=== PATIENT | female | born 1995 | race Caucasian/White ===

== ENCOUNTER 2019-04-10 22:38 | Observation (INO) | payer MEDICAID, OTHER ==
[~2019-04-10] VITALS: Ht 167.6 cm; Wt 65.8 kg
[2019-04-10] MEDS ORDERED: PREN-153 OR (22:59)
[2019-04-10] MEDS ORDERED: LACTATED RINGER'S 1,000 ML IV SCH (23:02)
[2019-04-10] MEDS ORDERED: LACTATED RINGER'S 1,000 ML IV ONE (23:02)
[2019-04-10] MEDS ORDERED: BETAMETHASONE ACET (6MG/ML) 5ML VIAL ONE (23:11)
[2019-04-10] MEDS: TERBUTALINE SULFATE 1 MG/ML 1ML VIAL SC SCH ×2 (23:13→23:36)
[2019-04-10] MEDS ORDERED: NIFEdipine 10 MG CAP PO ONE (23:30)
[2019-04-11] MEDS ORDERED: BETAMETHASONE ACET (6MG/ML) 5ML VIAL IM SCH (10:00)
== END 2019-04-11 00:35 | disposition home or self-care (01) | DRG 563 ==
LOC: LDRP 22:38
PROVIDERS: ADMIT Obstetrics & Gynecology; ATTEND Obstetrics & Gynecology
DX: O60.03 Preterm labor without delivery, third trimester (principal); O62.9 Abnormality of forces of labor, unspecified; Z3A.31 31 weeks gestation of pregnancy
CPT/HCPCS: 59025; 81002; 96372; G0378; J0702; J3105; 96361; 96366

== ENCOUNTER 2019-04-11 22:30 | Observation (INO) | payer MEDICAID ==
[~2019-04-11] VITALS: Ht 167.6 cm; Wt 65.8 kg
[~2019-04-11 22:30] MED LIST: PREN-153 OR
[2019-04-11] MEDS ORDERED: BETAMETHASONE ACET (6MG/ML) 5ML VIAL IM ONE (23:00)
== END 2019-04-11 23:00 | disposition home or self-care (01) | DRG 566 ==
LOC: LDRP 22:30
PROVIDERS: ADMIT Obstetrics & Gynecology; ATTEND Obstetrics & Gynecology
DX: O62.9 Abnormality of forces of labor, unspecified (principal); Z3A.31 31 weeks gestation of pregnancy
CPT/HCPCS: 59025; 81002; G0378; 96372

== ENCOUNTER 2019-04-14 10:55 | Observation (INO) | payer MEDICAID | END 2019-04-14 12:00 | disposition home or self-care (01) | DRG 566 | LOC: LDRP 10:55 | PROVIDERS: ADMIT Obstetrics & Gynecology; ATTEND Obstetrics & Gynecology | DX: O62.9 Abnormality of forces of labor, unspecified (principal); O26.893 Other specified pregnancy related conditions, third trimester; M54.9 Dorsalgia, unspecified; Z3A.31 31 weeks gestation of pregnancy | CPT/HCPCS: 59025; 81002; G0378 ==

== ENCOUNTER 2019-04-16 10:03 | Observation (INO) | payer MEDICAID ==
[~2019-04-16] VITALS: Ht 149.9 cm; Wt 95.3 kg
[2019-04-16] MEDS ORDERED: NIF10C GT (11:12)
== END 2019-04-16 10:45 | disposition home or self-care (01) | DRG 563 ==
LOC: LDRP 10:03
PROVIDERS: ADMIT Specialist; ATTEND Specialist
DX: O60.03 Preterm labor without delivery, third trimester (principal); Z3A.32 32 weeks gestation of pregnancy
CPT/HCPCS: 59025; 81002; G0378

== ENCOUNTER 2019-04-21 10:05 | Observation (INO) | payer MEDICAID ==
[~2019-04-21 10:05] MED LIST changes: +NIF10C GT
== END 2019-04-21 10:45 | disposition home or self-care (01) | DRG 563 ==
LOC: LDRP 10:05
PROVIDERS: ADMIT Specialist; ATTEND Specialist
DX: O60.03 Preterm labor without delivery, third trimester (principal); Z3A.33 33 weeks gestation of pregnancy
CPT/HCPCS: 59025; 81002; G0378

== ENCOUNTER 2019-04-28 10:05 | Observation (INO) | payer MEDICAID | END 2019-04-28 11:00 | disposition home or self-care (01) | DRG 563 | LOC: LDRP 10:05 | PROVIDERS: ADMIT Obstetrics & Gynecology; ATTEND Obstetrics & Gynecology | DX: O60.03 Preterm labor without delivery, third trimester (principal); Z3A.34 34 weeks gestation of pregnancy | CPT/HCPCS: 59025; 81002; G0378 ==

== ENCOUNTER 2019-05-06 10:23 | Observation (INO) | payer MEDICAID | END 2019-05-06 11:42 | disposition home or self-care (01) | DRG 563 | LOC: LDRP 10:23 | PROVIDERS: ADMIT Obstetrics & Gynecology; ATTEND Obstetrics & Gynecology | DX: O60.03 Preterm labor without delivery, third trimester (principal); Z3A.35 35 weeks gestation of pregnancy | CPT/HCPCS: 59025; 81002; G0378 ==

== ENCOUNTER 2019-05-15 10:52 | Observation (INO) | payer MEDICAID ==
[~2019-05-15 10:52] MED LIST changes: -NIF10C GT
== END 2019-05-15 12:20 | disposition home or self-care (01) | DRG 563 ==
LOC: LDRP 10:52
PROVIDERS: ADMIT Specialist; ATTEND Specialist
DX: O60.03 Preterm labor without delivery, third trimester (principal); Z3A.36 36 weeks gestation of pregnancy
CPT/HCPCS: 59025; 81002; G0378

== ENCOUNTER 2019-05-30 03:34 | Inpatient (IN) | payer MEDICAID ==
[~2019-05-30] VITALS: Ht 30.5 cm; Wt 0.5 kg
[2019-05-30] MEDS ORDERED: LACT. RINGERS/OXYTOCIN 20UNITS 1,000 ML IV SCH (08:35)
[2019-05-30] MEDS ORDERED: LIDOCAINE 2%HCL (LOCAL ANESTH.) INJ 20ML MDV ID ONE (08:45)
[2019-05-30] MEDS ORDERED: PHISODERM TOP SOLN 240ML BTL TOP PRN (08:45)
[2019-05-30 09:16] LABS: Urine Bacteria FEW /hpf (None Seen); Urine Blood 1+ /uL (Negative); Urine Mucus FEW (None Seen); Urine Specific Gravity 1.016 (1.001-1.035); Urine WBC 7 /hpf (0 - 5)
[2019-05-30 09:37] LABS: Basophils # (auto) 0 10 ^3/uL (0-0.2); Basophils % (auto) 0.4 % (0.0-2.0); Eosinophils # (auto) 0.1 10 ^3/uL (0-0.8); Eosinophils % (auto) 0.9 % (0.0-7.0); Hematocrit 37.2 % (36.0-46.0); Hemoglobin 12.6 g/dL (12.2-16.2); Lymphocytes # (auto) 2.3 10 ^3/uL (0.4-5.4); Lymphocytes % (auto) 21.6 % (10.0-50.0); Mean Corpuscular Hemoglobin 31.8 pg (28.0-32.0); Mean Corpuscular Volume 93.8 fL (80.0-100.0); Monocytes # (auto) 0.7 10 ^3/uL (0-1.3); Monocytes % (auto) 6.6 % (0.0-12.0); Neutrophils # (auto) 7.4 10 ^3/uL (1.6-8.6); Neutrophils % (auto) 70.5 % (37.0-80.0); Nucleated Red Blood Cells % 0.1 %; Platelet Count (auto) 150 10^3/uL (140-450); Red Blood Cells 3.97 10^6/uL (4.0-5.20); Red Cell Distribution Width 13.3 % (11.8-14.3); White Blood Cell 10.5 10^3/uL (4.4-10.8)
[2019-05-30] MEDS: LACTATED RINGER'S 1,000 ML IV SCH (09:40)
[2019-05-30 09:52] LABS: INR 0.95 (0.9-1.15); Partial Thromboplastin Time 24.8 sec (23.64-32.05)
[2019-05-30 09:56] LABS: Albumin 2.9 g/dL (3.4-5.0); Calcium 9.3 mg/dL (8.5-10.1); Potassium 4.1 mmol/L (3.5-5.1)
[2019-05-30 10:03] LABS: BUN/Creatinine Ratio 16.7; Bilirubin, Total 0.3 mg/dL (0.2-1.0); Total Protein 6.7 g/dL (6.4-8.2); Uric Acid 6.3 mg/dL (2.6-6.0)
[2019-05-30] MEDS ORDERED: hydrALAZINE HCL 20 MG/ML VL IV ONE (10:15)
[2019-05-30] MEDS: miSOPROStol 50 MCG per PRE-CUT 1/2 TAB PO PRN ×3 (10:24→20:19)
[2019-05-30] MEDS ORDERED: TERBUTALINE SULFATE 1 MG/ML 1ML VIAL SC ONE (16:30)
[2019-05-31] MEDS: fentaNYL 200mCg/100ml W ROPIVA 100 ML EPI SCH ×2 (00:38→09:23)
[2019-05-31] MEDS ORDERED: SODIUM CHLORIDE 0.9% 500 ML IV PRN (00:49)
[2019-05-31] MEDS ORDERED: fentaNYL 200mCg/100ml W ROPIVA 100 ML EPI SCH (01:00)
[2019-05-31] MEDS ORDERED: ePHEDrine SULFATE 50 MG/ML AMP IV ONE ×2 (01:00)
[2019-05-31] MEDS ORDERED: NALOXONE HCL 0.4 MG/ML VIAL IV ONE (01:00)
[2019-05-31] MEDS: LACTATED RINGER'S 1,000 ML IV SCH ×2 (01:28→01:29)
[2019-05-31 12:08] LABS: RPR Non Reactive (Non Reactive)
[2019-05-31 14:39] VITALS: BP 112/62
[2019-05-31] MEDS: WITCH HAZEL-GLYCERIN PAD TOP PRN (14:42)
[2019-05-31] MEDS: DERMOPLAST 60ML BOTTLE TOP PRN (14:42)
[2019-05-31] MEDS: IBUPROFEN 600 MG TAB PO PRN ×2 (14:43→21:12)
[2019-05-31 19:00] VITALS: BP 129/75
[2019-05-31 23:00] VITALS: BP 122/75
[2019-06-01 02:59] VITALS: BP 114/70
[2019-06-01 07:02] VITALS: BP 120/74
[2019-06-01] MEDS: IBUPROFEN 600 MG TAB PO PRN (07:41)
[2019-06-01 12:11] VITALS: BP 137/85
[2019-06-01] MEDS: DERMOPLAST 60ML BOTTLE TOP PRN (12:38)
[2019-06-01] MEDS: WITCH HAZEL-GLYCERIN PAD TOP PRN (12:38)
== END 2019-06-01 12:55 | disposition home or self-care (01) | DRG 560 ==
LOC: LDRP 03:34 → OBSVTOIN 08:25 → LDRP 23:46
PROVIDERS: ADMIT Specialist; ATTEND Specialist
PROC: 10E0XZZ Delivery of Products of Conception, External Approach (ICD-10-PCS; principal; 2019-05-30)
PROC: 0HQ9XZZ Repair Perineum Skin, External Approach (ICD-10-PCS; 2019-05-30)
PROC: 3E0R3BZ Introduction of Anesthetic Agent into Spinal Canal, Percutaneous Approach (ICD-10-PCS; 2019-05-30)
PROC: 00HU33Z Insertion of Infusion Device into Spinal Canal, Percutaneous Approach (ICD-10-PCS; 2019-05-30)
DX: O13.4 Gestational [pregnancy-induced] hypertension without significant proteinuria, complicating childbirth (principal); O70.0 First degree perineal laceration during delivery; Z37.0 Single live birth; Z3A.38 38 weeks gestation of pregnancy; Z88.6 Allergy status to analgesic agent; Z88.5 Allergy status to narcotic agent
CPT/HCPCS: 36415; 51702; 59025; 59409; 62282; 76805; 80053; 81001; 81002; 84112; 84550; 85025; 85610; 85730; 86592; 86850; 86900; 86901; 94762; 96365; 96366; G0378; J2590

== ENCOUNTER → 2023-04-16 | Outpatient (CLI) | payer MEDICAID ==
[~2023-04-16] MED LIST changes: -PREN-153 OR; +PREN1TAB71 OR
== END | disposition home or self-care (01) ==
LOC: LAB 09:11
PROVIDERS: ATTEND Obstetrics & Gynecology
DX: N91.2 Amenorrhea, unspecified (principal)
CPT/HCPCS: 36415; 84702

== ENCOUNTER 2024-01-21 12:15 | Observation (INO) | payer MEDICAID ==
--- NOTE | 2024-01-21 13:35 | DVH ---
BIOPHYSICAL PROFILE HISTORY: Positive AFP TECHNIQUE: Multiple transabdominal real-time grayscale sonographic images through the gravid uterus of the fetus with duplex Doppler color flow and M-mode spectral analysis FINDINGS: BIOPHYSICAL PROFILE: breathing score: 2 movement score: 2 tone score: 2 Quantitative OSMAN score: 2 (OSMAN: 10.7 Cm.) Total score: 8 The cervix is not definitely visualized Single live fetus in vertex presentation. heart rate 134 beats per minute. Anterior placenta without previa or abruption IMPRESSION: Biophysical profile score: 8
--- NOTE | 2024-01-21 19:48 | DVHDS2 ---
Physician Discharge Progress N Final Diagnosis: testing for +AFP Operations or Procedures: Operations or Procedures 29yo IUP@34wks was sent down from [facility] OB office for NST/BPP because she could not make it to her appt with Dr. Larios today for +AFP (NST/BPP done twice weekly). +FM, denies UCs/VB/LOF VSS UA wnl NST reactive BPP wnl FKC/PTL precautions reviewed Condition on Discharge: Stable Disposition: Home Discharge Instructions: Diet: Regular Activity: No Restrictions, As Tolerated Medications: PNV Follow Up Care: Specialist: f/u with [facility] OB appts and Dr. Larios's appts as scheduled Discharge Statement: "Patient was advised to return to the ER or call 911 if any headaches, dizziness, shortness of breath, chest pain, abdominal pain, bleeding, fevers, or worsening of medical condition. Patient was counseled about treatment plan, medications, possible side effects, patientverbalized understanding. All questions were answered to the best of my ability. This discharge took greater then 30 minutes in planning, reviewing documentation, counseling the patient, and discussing with other team members." ANDERSON KNIGHT CNM Jan 21, 2024 19:48
== END 2024-01-21 14:00 | disposition home or self-care (01) ==
LOC: LDRP 12:15
PROVIDERS: ADMIT Obstetrics & Gynecology; ATTEND Obstetrics & Gynecology
DX: Z36.1 Encounter for antenatal screening for raised alphafetoprotein level (principal); Z3A.34 34 weeks gestation of pregnancy; Z88.5 Allergy status to narcotic agent
CPT/HCPCS: 76818; G0378; 59025; 81002; 94760

== ENCOUNTER 2024-02-25 23:22 | Observation (INO) | payer MEDICAID ==
[~2024-02-25] VITALS: Ht 167.6 cm; Wt 73.9 kg
[2024-02-26 00:17] LABS: Fern Testing Negative
--- NOTE | 2024-02-26 01:41 | DVHDS2 ---
Physician Discharge Progress N Final Diagnosis: intact amniotic membranes Paul jimenez contractions Operations or Procedures: Operations or Procedures S: 29yo IUP@39+wks presents to OB triage with c/o leaking fluid, unsure if her water broke and irregular contractions. Denies VB/RODRIGUEZ/vision changes/RUQ pain. Endorses +FM. PCN at [facility] OB office, uncomplicated except for +AFP where she gets biweekly NST/BPP at Dr. Larios's office. Pt was unable to make it to her appt at Dr. Larios's today. O: VSS UA wnl NST reactive BPP wnl SSE by RN: negative pooling and nitrazine SVE by RN: /-, intact and unchanged prior to D/C Laboratory Tests Test 02/25/24 23:45 Range/Units Amniotic Fluid Ferning Test Negative A: 29yo IUP@39+wks Intact amniotic membrane Paul jimenez contractions P: D/C home Recommended miles circuit and eat/rest/sleep FKC/Labor/PreE precautions reviewed Other Interventions Other Interventions [place] [id number] Ph: [phone] DIAGNOSTIC IMAGING Diagnostic Imaging Report : [id number] Signed PATIENT: ROGER RESTREPO ACCT: [id number] UNIT: [id number] : 1995 LOC: [facility] ROOM / BED: TRIAGE1 / A AGE / SEX: 29 / F ADM STATUS: ADM IN SERVICE 004 ORDERING PHYSICIAN: ANDERSON KNIGHT CNM PROCEDURE(s): BPP - BIOPHYSICAL PROFILE REASON: positive AFP ORDER NUMBER(s): [id number], ACCESSION NUMBER(s): [id number] BIOPHYSICAL PROFILE HISTORY: positive AFP Comparison Study: None available at time of dictation. TECHNIQUE: Multiple real-time grayscale sonographic images through the gravid uterus of the fetus with duplex Doppler color flow and M-mode spectral analysis FINDINGS: BIOPHYSICAL PROFILE: breathing score: 2 movement score: 2 tone score: 2 Quantitative OSMAN score: 2 (OSMAN: 7.4 Cm.) Total score: 8/8 position is vertex. Placenta is anterior. No evidence of previa or abruption. Review Nurse good notes good movement. heart rate of 142 beats per minute. IMPRESSION: Biophysical profile score: 8/8 ATED BY: NAMRATA DYKES DO DICTATED DATE/TIME: 02/26/24142 SIGNED BY: NAMRATA DYKES DO SIGNED DATE/TIME: 02/26/24142 CC: Condition on Discharge: Stable Disposition: Home Discharge Instructions: Diet: Regular Activity: No Restrictions, As Tolerated Medications: see med list Follow Up Care: Specialist: f/u in 1wk Discharge Statement: "Patient was advised to return to the ER or call 911 if any headaches, dizziness, shortness of breath, chest pain, abdominal pain, bleeding, fevers, or worsening of medical condition. Patient was counseled about treatment plan, medications, possible side effects, patientverbalized understanding. All questions were answered to the best of my ability. This discharge took greater then 30 minutes in planning, reviewing documentation, counseling the patient, and discussing with other team members." ANDERSON KNIGHT [facility] Feb 26, 2024 01:41
--- NOTE | 2024-02-26 01:45 | DVH ---
BIOPHYSICAL PROFILE HISTORY: positive AFP Comparison Study: None available at time of dictation. TECHNIQUE: Multiple real-time grayscale sonographic images through the gravid uterus of the fetus wi th duplex Doppler color flow and M-mode spectral analysis FINDINGS: BIOPHYSICAL PROFILE: breathing score: 2 movement score: 2 tone score: 2 Quantitative OSMAN score: 2 (OSMAN: 7.4 Cm.) Total score: 8/8 position is vertex. Placenta is anterior. No evidence of previa or abruption. Shading Painter good notes good movement. heart rate of 142 beats per minute. IMPRESSION: Biophysical profile score: 8/8
== END 2024-02-26 02:26 | disposition home or self-care (01) ==
LOC: LDRP 23:22
PROVIDERS: ADMIT Obstetrics & Gynecology; ATTEND Obstetrics & Gynecology
DX: O41.93X0 Disorder of amniotic fluid and membranes, unspecified, third trimester, not applicable or unspecified (principal); O62.9 Abnormality of forces of labor, unspecified; Z98.890 Other specified postprocedural states; Z79.899 Other long term (current) drug therapy; Z88.5 Allergy status to narcotic agent; Z3A.39 39 weeks gestation of pregnancy
CPT/HCPCS: 59025; 76818; 81002; G0378; Q0114

== ENCOUNTER 2024-02-28 09:46 | Observation (INO) | payer MEDICAID ==
[~2024-02-28] VITALS: Ht 167.6 cm; Wt 73.9 kg
--- NOTE | 2024-02-28 15:13 | DVHDS2 ---
Physician Discharge Progress N Final Diagnosis: Term IUP, 39+ wk NOT in labor AFP+ Operations or Procedures: Operations or Procedures NST/BPP/OSMAN All WNL Condition on Discharge: Stable Disposition: Home Discharge Instructions: Diet: Regular Activity: Light activity Follow Up/Referral: as scheduled Medications: N/A Follow Up Care: Discharge Statement: "Patient was advised to return to the ER or call 911 if any headaches, dizziness, shortness of breath, chest pain, abdominal pain, bleeding, fevers, or worsening of medical condition. Patient was counseled about treatment plan, medications, possible side effects, patientverbalized understanding. All questions were answered to the best of my ability. This discharge took greater then 30 minutes in planning, reviewing documentation, counseling the patient, and discussing with other team members." JASON PA DO Feb 28, 2024 15:13
== END 2024-02-28 12:14 | disposition home or self-care (01) ==
LOC: LDRP 09:46
PROVIDERS: ADMIT Obstetrics & Gynecology; ATTEND Obstetrics & Gynecology
DX: O62.9 Abnormality of forces of labor, unspecified (principal); Z3A.39 39 weeks gestation of pregnancy; Z88.5 Allergy status to narcotic agent; Z79.899 Other long term (current) drug therapy
CPT/HCPCS: 59025; 81002; 94760; G0378

== ENCOUNTER 2024-02-29 02:02 | Inpatient (IN) | payer MEDICAID ==
[~2024-02-29] VITALS: Ht 167.6 cm; Wt 73.9 kg
[2024-02-29] MEDS ORDERED: NALBUPHINE HCL 10 MG/1ml INJECTION IV PRN (02:45)
[2024-02-29] MEDS ORDERED: LIDOCAINE 2%HCL (LOCAL ANESTH.) INJ 20ML MDV IJ PRN (02:45)
[2024-02-29] MEDS: LIDOCAINE HCL 2 %PF INJ 10ML AMP IJ ONE (03:00)
[2024-02-29] MEDS ORDERED: TERBUTALINE SULFATE 1 MG/ML 1ML VIAL SC PRN (03:00)
[2024-02-29] MEDS ORDERED: LACT. RINGERS/OXYTOCIN 20UNITS 1,000 ML IV SCH (03:00)
[2024-02-29] MEDS ORDERED: ePHEDrine SULFATE 50 MG/ML AMP IV ONE (03:00)
[2024-02-29] MEDS ORDERED: NALOXONE HCL 0.4 MG/ML VIAL IV ONE (03:00)
[2024-02-29 03:10] LABS: Urine Bacteria None Seen /hpf (None Seen)
[2024-02-29] MEDS: PHISODERM TOP SOLN 240ML BTL TOP PRN (03:15)
[2024-02-29] MEDS: DERMOPLAST 60ML BOTTLE TOP PRN (03:15)
[2024-02-29] MEDS: WITCH HAZEL-GLYCERIN PAD TOP PRN (03:15)
[2024-02-29] MEDS: LACTATED RINGER'S 1,000 ML IV SCH (03:16)
[2024-02-29 03:24] LABS: Urine Blood Negative /uL (Negative); Urine Clarity Clear (Clear); Urine Color Light-Yellow (Yellow); Urine Mucus FEW (None Seen); Urine Protein, UAD Negative (Negative); Urine Specific Gravity 1.021 (1.001-1.035); Urine Urobilinogen Normal (Negative); Urine WBC 2 /hpf (0 - 5); Urine pH 6.5 (5.0-9.0)
[2024-02-29 03:27] LABS: Basophils # (auto) 0 10 ^3/uL (0-0.2); Basophils % (auto) 0.2 % (0.0-2.0); Eosinophils # (auto) 0.2 10 ^3/uL (0-0.8); Eosinophils % (auto) 1.4 % (0.0-7.0); Hematocrit 35.8 % (36.0-46.0); Hemoglobin 12.2 g/dL (12.2-16.2); Lymphocytes # (auto) 1.8 10 ^3/uL (0.4-5.4); Lymphocytes % (auto) 16.1 % (10.0-50.0); Mean Corpuscular Hemoglobin 31.6 pg (28.0-32.0); Mean Corpuscular Hgb Conc. 34.2 g/dL (32.0-36.0); Mean Corpuscular Volume 92.4 fL (80.0-100.0); Monocytes # (auto) 0.9 10 ^3/uL (0-1.3); Monocytes % (auto) 8.1 % (0.0-12.0); Neutrophils # (auto) 8.4 10 ^3/uL (1.6-8.6); Neutrophils % (auto) 74.2 % (37.0-80.0); Platelet Count (auto) 182 10^3/uL (140-450); Red Blood Cells 3.88 10^6/uL (4.0-5.20); Red Cell Distribution Width 13.5 % (11.8-14.3); White Blood Cell 11.3 10^3/uL (4.4-10.8)
[2024-02-29] MEDS ORDERED: LACT. RINGERS/OXYTOCIN 20UNITS 500 ML IV ONE (03:30)
[2024-02-29 03:36] LABS: Amphetamine Screen, Urine Neg (NEGATIVE); Barbiturate Scree,Urine Neg (NEGATIVE); Benzodiazephine Screen, Urine Neg (NEGATIVE); Cannabinoid Screen, Urine Neg (NEGATIVE); Cocaine Screen, Urine Neg (NEGATIVE); Opiate Scree,Urine Neg (NEGATIVE); Phencyclidine Screen, Urine Neg (NEGATIVE)
[2024-02-29 03:38] LABS: Alanine Aminotransferase 15 U/L (7-40); Albumin 3.8 g/dL (3.2-4.8); Anion Gap 10 (5-15); BUN/Creatinine Ratio 16.9 (10.0-20.0); Bilirubin, Total 0.3 mg/dL (0.2-1.0); Blood Urea Nitrogen 10 mg/dL (9-23); Calcium 9.8 mg/dL (8.7-10.4); Glucose 100 mg/dL (74-106); Potassium 4.1 mmol/L (3.5-5.1); Sodium 138 mmol/L (136-145); Total Protein 6.3 g/dL (5.7-8.2)
[2024-02-29 03:39] LABS: Alkaline Phosphatase 117 U/L (46-116); Aspartate Aminotransferase 12 U/L (13-40); Carbon Dioxide 20 mmol/L (20-31); Chloride 108 mmol/L (98-107)
[2024-02-29 03:44] LABS: INR 0.92 (0.9-1.15); Partial Thromboplastin Time 23.9 SEC (24.5-34.5); Prothrombin Time 9.8 sec (9.3-11.8)
[2024-02-29] MEDS: LACTATED RINGER'S 1,000 ML IV ONE (04:28)
[2024-02-29] MEDS: ROPIVACAINE HCL 200 ML ONE (04:31)
[2024-02-29] MEDS: CALCIUM CARB 500 MG CHEW TAB PO PRN (06:00)
--- NOTE | 2024-02-29 06:32 | DVHHP2 ---
OB CC & HPI Date Date of Admission: Feb 29, 2024 Patient Identification: : 2 Para: 1 EGA: 39.4 Chief Complaints: Reason for admission: active labor History of Present Complaints 29y IUP 39.4 wk admitted in active labor. GBS neg Good care , uncomplicated. Denies PROM Past Medical History Cardiac: No pertinent Hx Pulmonary: No pertinent Hx Central Nervous System: No pertinent Hx GI: No pertinent Hx Hemotology/Oncology: No pertinent Hx Hepatobiliary: No pertinent Hx Psychiatric: No pertinent Hx Musculoskeletal: No pertinent Hx Rheumotologic: No pertinent Hx Infectious Disease: No peritnent Hx ENT: No pertinent Hx Renal/: No pertinent Hx Endocrine: No pertinent Hx Dermatology: No pertinent Hx Past Surgical History: No pertinent Hx OB History OB History Care: Good Care Ultrasounds: Normal mid trimester US Obstetrical Complications: None Medical Complications: None Allergies: Coded Allergies: Codeine (Verified Allergy, Mild, itching, 04/28/19) Morphine (Verified Allergy, Mild, itching, 04/28/19) Home Meds Reported Medications Vit W/ Ferrous Fumara (PNV PLUS MULTIVI) Plus Tab, 1 OR, TAB 04/10/19 Current Medications Current Medications Medications (Trade) Dose Ordered Sig/Brent Route PRN Reason Start Time Stop Time Status Last Admin Lactated Ringer's 1,000 ml @ 125 mls/hr Q8H IV 02/29/24 02:45 02/29/24 03:16 Nalbuphine HCl (Nubain) 10 mg Q4HP PRN IV MODERATE PAIN (4-6 PAIN SCALE) 02/29/24 02:45 Eddie Moncada (Josh) 1 pad PRN PRN TOP PERINEAL AREA DISCOMFORT 02/29/24 02:45 02/29/24 03:15 Sodium Lauryl Sulfate (Phisoderm) 240 ml PRN PRN TOP PERINEAL AREA DISCOMFORT 02/29/24 02:45 02/29/24 03:15 Benzocaine (Dermoplast) 1 applic PRN PRN TOP PERINEAL AREA DISCOMFORT 02/29/24 02:45 02/29/24 03:15 Lidocaine HCl (Xylocaine) 40 ml ONCE PRN IJ PERINEAL AREA DISCOMFORT 02/29/24 02:45 Oxytocin 1,000 ml @ 6 ml/hr Q24H IV 02/29/24 03:00 Terbutaline Sulfate (Brethine Inj) 0.25 mg ONCE PRN SC Uterine tachysystole 02/29/24 03:00 Calcium Carbonate (Tums) 500 mg QIDPRN PRN PO FOR STOMACH DISTRESS 02/29/24 05:45 02/29/24 06:00 Family & Social History Family/Social History Blood Type: B+ GBS Status: Negative Review of Systems Constitutional: No symptom reported Ears, Nose, & Throat: No symptom reported Eyes: No symptom reported Pulmonary/Respiratory: No symptom reported Cardiovascular: No symptom reported Gastrointestinal: No symptom reported Genitourinary: No symptom reported Musculoskeletal: No symptom reported Skin: No symptom reported Psychiatric: No symptom reported Endocrine: No symptom reported Hemotologic/Lymphatic: No symptom reported OB Admission Exam Physical Exam HEENT: NCAT Heart: Rhythm Normal Lungs: Clear Abdomen: Gravid Extremities: Normal Reflexes: Normal Cervical Dilatation: 6cm Effacement: Other (90) Station: -1 Membranes: Ruptured (AROM at 0620 am) Amniotic Fluid: Clear Accelerations: Accelerations Present Decelerations: No Decelerations Short Term Variability: Present Audio Experience Expert Variability: Average (6-25) Contractions on Admission: < 5 Minutes Apart Intensity: Moderate OB Plan Plan Admitting Diagnosis: IUP 39.4 wk active labor, 6cm dilated GBS neg Plan: Expectant Management Other Plan: Admit for labor and anticipated Pitocin augmentation as needed Pain control, epidural discussed JASON PA DO Feb 29, 2024 06:32
[2024-02-29] MEDS ORDERED: ONDANSETRON HCL 4 MG/2 ML VIAL IV PRN (07:15)
[2024-02-29] MEDS: LACT. RINGERS/OXYTOCIN 20UNITS 500 ML IV ONE (08:18)
--- NOTE | 2024-02-29 08:24 | LDN2 ---
Labor and Delivery Note Date 02/29/24 Age 29 2 Para 2 EGA Term Diagnosis Term in labor, s/p Vaginal Delivery: VTX Vacuum Assisted: No Placenta: Spontaneous Sex: Female Weight Pending Apgars 8/9 Amniotic Fluid: Clear Anesthesia Epidural Episiotomy: No Repaired with 1st deg perineal lac repaired w/ 3-0 Chromic EBL 50 mL Labs Blood Bank 02/29/24 03:10: Blood Type B POSITIVE Complications None JASON PA DO Feb 29, 2024 08:24
[2024-02-29] MEDS ORDERED: ACETAMINOPHEN 325 MG TAB PO PRN (10:00)
[2024-02-29] MEDS: IBUPROFEN 600 MG TAB PO PRN (14:34)
[2024-02-29 15:00] VITALS: BP 131/63; PULSE 89; RESP 16; TEMP 98; O2SAT 96
[2024-02-29 18:36] VITALS: BP 117/71; PULSE 73; RESP 16; TEMP 97.8; O2SAT 97
[2024-02-29 23:00] VITALS: BP 120/68; PULSE 75; RESP 17; TEMP 97.9; O2SAT 97
--- NOTE | 2024-03-01 01:51 | DVHPN2 ---
Progress Note Date Seen: Mar 01, 2024 Subjective PPD#1 s/p NO complaints. Lochia minimal vital signs Vital Sign Date Time Temp Pulse Resp B/P (MAP) Pulse Ox O2 Delivery O2 Flow Rate FiO2 02/29/24 23:00 97.9 75 17 120/68 (85) 97 97.9 02/29/24 19:00 Room Air Total Intake and Output 02/29/24 02/29/24 03/01/24 15:00 23:00 07:00 Output Total 1400 ml 900 ml Balance -1400 ml -900 ml medications Current Medications Medications Dose Ordered Sig/Brent Route Start Time Stop Time Status Last Admin Dose Admin Witch Coral 1 pad PRN PRN TOP 02/29/24 02:45 02/29/24 03:15 1 PAD Sodium Lauryl Sulfate 240 ml PRN PRN TOP 02/29/24 02:45 02/29/24 03:15 240 ML Benzocaine 1 applic PRN PRN TOP 02/29/24 02:45 02/29/24 03:15 1 APPLIC Calcium Carbonate 500 mg QIDPRN PRN PO 02/29/24 05:45 02/29/24 06:00 500 MG Ondansetron HCl 4 mg Q4HPRN PRN IV 02/29/24 07:15 Ibuprofen 600 mg Q6HP PRN PO 02/29/24 10:00 02/29/24 23:54 600 MG Acetaminophen 650 mg Q4HP PRN PO 02/29/24 10:00 laboratory and microbiology Laboratory Tests 02/29/24 03:10 Test 02/29/24 03:10 Range/Units Serum Glucose 100 74-106 mg/dL Objective O: AFVSS Chest: heart and lung sounds normal. Abd soft, non-tender, fundus firm, BS, no rebound or guarding, Ext Neg Homans, Non-tender, edema Lochia - minimal Labs reviewed Assessment/Plan PPD#1 s/p Doing well Advance care D/C planning Plan discussed with: Patient JASON PA DO Mar 01, 2024 01:51
[2024-03-01 03:09] VITALS: BP 111/56; PULSE 76; RESP 15; TEMP 97.9; O2SAT 96
[2024-03-01] MEDS ORDERED: IBU600T PO ×2 (07:41)
--- NOTE | 2024-03-01 07:43 | DVHDS2 ---
Physician Discharge Progress N Final Diagnosis: Term delivered Operations or Procedures: Operations or Procedures Commentary: Commentary NOrmal labor and delivery Normal course Condition on Discharge: Stable Disposition: Home Discharge Instructions: Diet: Regular Activity: Light activity Follow Up/Referral: [address] Rios Medications: Ibuprofen PRN pain see eRX Follow Up Care: Discharge Statement: "Patient was advised to return to the ER or call 911 if any headaches, dizziness, shortness of breath, chest pain, abdominal pain, bleeding, fevers, or worsening of medical condition. Patient was counseled about treatment plan, medications, possible side effects, patientverbalized understanding. All questions were answered to the best of my ability. This discharge took greater then 30 minutes in planning, reviewing do cumentation, counseling the patient, and discussing with other team members." JASON PA DO Mar 01, 2024 07:43
[2024-03-03 07:06] LABS: RPR Non Reactive (Non Reactive)
[2024-03-03 10:55] LABS: Treponema Pallidum Ab LC Non Reactive (Non Reactive)
== END 2024-03-01 11:45 | disposition home or self-care (01) | DRG 560 ==
LOC: LDRP 02:02 → UNDOADMOB 02:02 → LDRP 02:43 → INTOOBSV 02:43 → OBSVTOIN 02:43
PROVIDERS: ADMIT Obstetrics & Gynecology; ATTEND Obstetrics & Gynecology
PROC: 10E0XZZ Delivery of Products of Conception, External Approach (ICD-10-PCS; principal; 2024-02-29)
PROC: 10907ZC Drainage of Amniotic Fluid, Therapeutic from Products of Conception, Via Natural or Artificial Opening (ICD-10-PCS; 2024-02-29)
PROC: 0HQ9XZZ Repair Perineum Skin, External Approach (ICD-10-PCS; 2024-02-29)
PROC: 3E0R3BZ Introduction of Anesthetic Agent into Spinal Canal, Percutaneous Approach (ICD-10-PCS; 2024-02-29)
PROC: 00HU33Z Insertion of Infusion Device into Spinal Canal, Percutaneous Approach (ICD-10-PCS; 2024-02-29)
DX: O70.0 First degree perineal laceration during delivery (principal); Z37.0 Single live birth; Z88.5 Allergy status to narcotic agent; Z3A.39 39 weeks gestation of pregnancy
CPT/HCPCS: 36415; 59025; 59409; 62282; 80053; 80307; 81001; 85025; 85610; 85730; 86592; 86780; 86850; 86900; 86901; 94760; 94762; 96360; 96361; 96365; 96366; G0378; J2590